=== PATIENT | male | born 2000 | race Caucasian/White ===

== ENCOUNTER 2022-12-29 21:23 | Emergency (ER) | payer SELFPAY ==
[2022-12-29 21:42] VITALS: BP 148/80; PULSE 62; RESP 20; TEMP 98.2; BMI 28.1
[2022-12-29] MEDS ORDERED: IBUPROFEN 600 MG TABLET (FP) PO ONE ×2 (22:06→22:08)
[2022-12-29] MEDS ORDERED: DEXAMETHASONE SOD PHOSPHATE 10 MG/1 ML VIAL IM ONE (22:06)
[2022-12-29] MEDS ORDERED: AMOX TR/POT CLAV 875MG/125MG TABLETS (FP) PO ONE (22:06)
[2022-12-29] MEDS ORDERED: AMOX TR/POT CLAV 875MG/125MG TABLETS (FP) ONE (22:08)
[2022-12-29] MEDS ORDERED: DEXAMETHASONE SOD PHOSPHATE 10 MG/1 ML VIAL ONE (22:11)
== END 2022-12-29 23:31 | disposition home or self-care (01) ==
LOC: JER 21:23
PROC: 3E023GC Introduction of Other Therapeutic Substance into Muscle, Percutaneous Approach (ICD-10-PCS; principal; 2022-12-29)
DX: R07.0 Pain in throat (principal); J35.1 Hypertrophy of tonsils; R59.0 Localized enlarged lymph nodes; J03.90 Acute tonsillitis, unspecified; J02.9 Acute pharyngitis, unspecified; R06.9 Unspecified abnormalities of breathing
CPT/HCPCS: 70490-TC; 87651; 99284-25; J1100